=== PATIENT | male | born 1985 | race Caucasian/White ===

== ENCOUNTER 2019-09-24 17:40 | Observation (INO) ==
[2019-09-24] MEDS ORDERED: MORPHINE IV ONE (18:28)
[2019-09-24] MEDS ORDERED: ZOFRAN IV ONE (18:28)
[2019-09-24] MEDS ORDERED: VANCOMYCIN IV PER PHARMACY MISC SCH (18:30)
[2019-09-24 18:37] LABS: BASO# 0.05 X1000 (0.0-0.2); BASO% 0.3 % (0.0-0.8); EOS# 0.16 X1000 (0.0-0.7); EOS% 1.1 % (0.0-10.0); HEMOGLOBIN 14.6 g/dL (14.0-18.0); IMM GRAN# 0.02 X1000 (0.0-0.04); IMM GRAN% 0.1 % (0.0-0.5); LYMPH# 1.85 X1000 (1.2-3.4); LYMPH% 12.8 % (20.5-51.1); MCH 29.1 PG (27-31); MCHC 33.2 g/dL (33-37); MCV 87.6 FL (81-99); MONO# 1.39 X1000 (0.11-0.59); MONO% 9.6 % (1.7-9.3); MPV 10.7 FL (7.4-10.4); NEUT# 10.95 X1000 (1.4-6.5); NEUT% 76.1 % (42.2-75.2); PLT 288 X1000 (130-400); RBC 5.02 XMIL (4.7-6.1); RDW 13.5 % (11.5-14.5); WBC 14.42 X1000 (4.8-10.8)
[2019-09-24 18:52] LABS: AGAP 15; ALKALINE PHOSPHATASE 139 U/L (32-122); BUN 10 mg/dL (8-22); CALCIUM 9.4 mg/dL (8.8-10.2); CHLORIDE 101 mmol/L (98-107); COSMO 277; CREATININE 0.9 mg/dL (0.7-1.2); ESTIMATED GFR > 60; GLUCOSE 108 mg/dL (70-104); GOT 23 U/L (10-34); GPT 38 U/L (10-44); POTASSIUM 3.7 mmol/L (3.5-5.1); SODIUM 139 mmol/L (136-145); TCO2 24 mmol/L (25-35); TOTAL PROTEIN 8.3 g/dL (6.3-8.3)
--- NOTE | 2019-09-24 18:59 | PROVIDER DOCUMENTATION ---
HPI-Rash/Wound/ReCheck - General Chief Complaint: Sores/Lesions Stated Complaint: SORE / ARM Time Seen by Provider: 09/24/19 17:57 Source: patient Allergies/Adverse Reactions: Allergies Allergy/AdvReac Type Severity Reaction Status Date / Time No Known Allergies Allergy Verified 12/30/18 18:22 Home Medications: Home Medication List Medication Instructions Recorded Confirmed Last Taken Type Amoxicillin/Pot Clavulanate 875 mg PO Q12HR #20 tab 12/30/18 Unknown Rx [Augmentin] Levofloxacin [Levaquin] 750 mg PO DAILY #10 tab 12/30/18 Unknown Rx Oxycodone HCl/Acetaminophen 1 ea PO Q4-6H PRN PRN #6 tab 12/30/18 Unknown Rx [Percocet 7.5-325 mg Tablet] - History of Present Illness-Dermatology Nature of Presenting Problem: Patient is a 33 yowm who presents from [facility] for an abscess to right forearm. States he has had the abscess since and had I&D yesterday, also has been taking Bactrim since yesterday. Went to primary care office for recheck yesterday, LIPSTICK MOLDER sent pt here stating abscess is worse. He denies fever or any other complaints and is non-toxic in appearance. Review of Systems - Adult - REVIEW OF SYSTEMS - ADULT Constitutional: reports: no symptoms reported. denies: chills, fever Eyes: reports: no symptoms reported Ears, Nose, Mouth & Throat: reports: no symptoms reported Cardiovascular: reports: no symptoms reported Respiratory: reports: no symptoms reported Gastrointestinal: reports: no symptoms reported Genitourinary: reports: no symptoms reported Musculoskeletal: reports: no symptoms reported Integumentary: reports: see HPI Neurological: reports: no symptoms reported Psychiatric: reports: no symptoms reported Endocrine: reports: no symptoms reported Hematologic/Lymphatic: reports: no symptoms reported Allergic/Immunologic: reports: no symptoms reported All Other Systems: Reviewed and Negative Past History - Adult - PAST MEDICAL HISTORY-ADULT Review of Records: reports: Nursing Assessment Review, Medications Reviewed, Social history reviewed & non-contributory. Major Childhood Illnesses: reports: denies history Cardiovascular: reports: denies history Respiratory: reports: denies history Gastrointestinal: reports: denies history Genitourinary: reports: denies history Musculoskeletal: reports: denies history Neurological: reports: denies history Psychiatric: reports: denies history Endocrine/Immune: reports: denies history Other Conditions: reports: denies history - PRIOR SURGERIES/PROCEDURES Surgical/Procedure History: reports: reviewed, not pertinent - FAMILY HISTORY Family History: reviewed, not pertinent - SOCIAL HISTORY Smoking: non-smoker Physical Exam-General - PHYSICAL EXAM-ADULT Initial Vital Signs Reviewed: Yes - CONSTITUTIONAL General Appearance: alert, no apparent distress. negative: lethargic, slow to respond - EYES Eyes: PERRL/EOMI - HEAD, EARS, NOSE, MOUTH & THROAT HENMT: normocephalic/atraumatic - NECK Neck: full range of motion, supple, normal inspection - RESPIRATORY Respiratory: chest non-tender, lungs clear, normal breath sounds, no pleuratic chest pain, no respiratory distress, no accessory muscle use - CARDIOVASCULAR Cardiovascular: normal peripheral pulses, regular rate, rhythm, no gallop, no murmur - MUSCULOSKELETAL Extremity: normal range of motion, normal capillary refill Peripheral Pulses: radial (R): 3+ - SKIN Integumentary: normal color, warm/dry, other (Large abscess with streaking noted to anterior aspect of right forearm. purulent exudate also noted.). negative: cyanosis, diaphoresis, jaundice, mottled, pallor - NEUROLOGIC Neurologic: grossly normal, no motor/sensory deficits - PSYCHIATRIC Psych/Mental Status: normal mood/affect, normal thought content, normal thought process, oriented x 3 Progress - PLAN OF CARE/RESULTS Progress/Plan/Lab Results: Vital Signs - 8 hr 09/24/19 17:50 Temperature 98 F Pulse Rate 82 Respiratory Rate 18 Blood Pressure 157/94 O2 Sat by Pulse Oximetry 98 Laboratory Results - last 24 hr 09/24/19 09/24/19 09/24/19 18:00 18:00 19:04 WBC 14.42 H RBC 5.02 Hgb 14.6 Hct 44.0 MCV 87.6 MCH 29.1 MCHC 33.2 RDW Std Deviation 13.5 Plt Count 288 MPV 10.7 H Immature Gran % (Auto) 0.1 Neut % (Auto) 76.1 H Lymph % (Auto) 12.8 L [place] % (Auto) 9.6 H Eos % (Auto) 1.1 Baso % (Auto) 0.3 Immature Gran # (Auto) 0.02 Neut # (Auto) 10.95 H Lymph # (Auto) 1.85 [place] # (Auto) 1.39 H Eos # (Auto) 0.16 Baso # (Auto) 0.05 Sodium 139 Potassium 3.7 Chloride 101 Carbon Dioxide 24 L Anion Gap 15 BUN 10 Creatinine 0.9 Estimated GFR/1.73 m2 > 60 BUN/Creatinine Ratio 11 Glucose 108 H POC Glucose 88 Calculated Osmolality 277 Calcium 9.4 Total Bilirubin 0.50 AST 23 ALT 38 Alkaline Phosphatase 139 H Total Protein 8.3 Albumin 5.0 Globulin 3.0 Albumin/Globulin Ratio 2.0 Orders Category Date Time Status Admit - [facility] Routine AdmDCTranf 09/24/19 19:20 Ordered Activity - Up Ad Maggie ORDERED Care 09/24/19 19:22 Ordered Resuscitation Status Routine Care 09/24/19 19:22 Ordered Vital Signs Order ROUTINE Care 09/24/19 19:22 Ordered NPO Diet 09/25/19 00:01 Ordered Regular Diet Diet 09/24/19 19:23 Ordered FOREARM-RIGHT [RAD] Stat Exams 09/24/19 18:28 Completed BLOOD CULTURE [BLDCUL] Stat Lab 09/24/19 18:00 Ordered CBC WITH DIFF [HEME] Stat Lab 09/24/19 18:00 Completed COMPREHENSIVE METABOLIC PANEL [CHEM] Stat Lab 09/24/19 18:00 Completed WOUND CULTURE INC GRAM STAIN [RM] Routine Lab 09/24/19 18:00 Ordered 0.9% Sodium Chloride Inj [Ns] 1,000 ml Med 09/24/19 19:22 Ordered IV 100 mls/hr Acetaminophen [Tylenol] Med 09/24/19 19:22 Ordered 650 mg PO Q6H PRN PRN Ketorolac [Toradol] Med 09/24/19 19:22 Ordered 15 mg IV Q4H PRN PRN Morphine Med 09/24/19 19:22 Ordered 2 mg IV Q3H PRN Morphine Med 09/24/19 18:28 Discontinued 4 mg IV NOW ONE Ondansetron [Zofran] Med 09/24/19 18:28 Discontinued 4 mg IV NOW ONE Ondansetron [Zofran] Med 09/24/19 19:22 Ordered 4 mg IV Q6H PRN Pharmacy Order [Vancomycin IV Per Pharmacy] Med 09/24/19 18:30 Active 1 each MISC DIRECTED Vancomycin 1 gm/Ns Med 09/24/19 20:00 Active 1 gm in 250 ml IV Q1H Vancomycin 1,500 mg Med 09/25/19 08:00 Active 0.9% Sodium Chloride Inj [Ns] 250 ml IV Q12H Transfer/Admit Order [TRANSFER] Routine Transfer 09/24/19 19:17 Ordered Result Diagrams: 09/24/19 18:00 09/24/19 18:00 - REASSESSMENT Reassessment #1 Time Reassessed: 19:00 Status: other (Admitting HPS paged.) Reassessment #2 Time Reassessed: 19:24 Status: other (Pt in agreement with admission plan.) - CONSULTS/PCP/HOSPITALIST Notification #1 *Consult/PCP/Hospitalist*: Dr. Mendoza Time Discussed: 19:18 Reason/Comments: admission- cellulitis Consult Disposition: Admit (Requests basic admit orders including general surgery consult and Vancomycin.) Departure - Departure Date of Disposition Decision: 09/24/19 Time of Disposition Decision: 19:25 DIAGNOSIS: Cellulitis Qualifiers: Site of cellulitis: extremity Site of cellulitis of extremity: upper extremity Laterality: right Qualified Code(s): L03.113 - Cellulitis of right upper limb Disposition: ADMITTED INPATIENT 09 Certified Medical Emergency: Emergent Condition: Stable Referrals and Follow-Ups: None,PCP [Primary Care Provider] - - Critical Care Note This patient required my direct & personal management of CC.: No Attestation - Physician/ ALBINO Attestation Patient care was provided by Advanced Practice Provider:: Yes Advanced Practice Provider:: Diana Sanchez Advanced Practice Provider documentation review:: The Mid-level provider documentation, treatment plan and medical decision making was reviewed by the physician who agrees with all treatment and medical decision making by the MLP. The physician spent face to face time with patient:: No Advanced Practice Provider documentation review:: Supervising physician onsite and consulted in the evaluation and care of this patient. The physician did not have a face to face encounter with the patient.
--- NOTE | 2019-09-24 19:01 | Diag Imaging Result Doc PS360 ---
EXAM: FOREARM-RIGHT 09/24/2019 HISTORY: cellulitis TECHNIQUE: Right forearm two views COMMENT: The there is no evidence of fracture or dislocation. No periosteal reactions are present. There is some soft tissue swelling on the dorsal surface of the forearm near the midshaft of the ulna. IMPRESSION: No evidence of acute bony abnormality. Electronically signed by He Lyn 09/24/2019 6:58 PM
[2019-09-24] MEDS ORDERED: NS 1,000 ML IV ONE (19:22)
[2019-09-24] MEDS ORDERED: MORPHINE IV PRN (19:22)
[2019-09-24] MEDS ORDERED: TYLENOL PO PRN (19:22)
[2019-09-24] MEDS: VANCOMYCIN 1 GM/NS 1 GM/250 ML IVPB IV SCH ×2 (19:39→22:02)
[2019-09-24 21:02] LABS: INR 0.87; PROTIME 12.2 Seconds (11.0-16.0)
--- NOTE | 2019-09-24 21:09 | Diag Imaging Result Doc PS360 ---
EXAM: CHEST-1 VIEW 09/24/2019 HISTORY: sepsis protocol TECHNIQUE: Erect AP portable at 2049 COMMENT: There is no evidence of acute cardiac or pulmonary disease. No previous studies are available for comparison. IMPRESSION: No evidence of acute disease. Electronically signed by He Lyn 09/24/2019 9:06 PM
[2019-09-24] MEDS: DILAUDID IV PRN (22:08)
[2019-09-25] MEDS: DILAUDID IV PRN ×4 (00:41→11:25)
[2019-09-25 05:29] VITALS: BP 135/84
[2019-09-25 05:58] LABS: URINE SOURCE CLEAN CATCH
[2019-09-25 06:09] LABS: BILIRUBIN URINE NEGATIVE (NEGATIVE); BLOOD URINE TRACE (NEGATIVE); COLOR YELLOW; GLUCOSE URINE NEGATIVE (NEGATIVE); KETONE URINE NEGATIVE (NEGATIVE); LEUKOCYTES URINE NEGATIVE (NEGATIVE); NITRITE URINE NEGATIVE (NEGATIVE); PH URINE 6.5; PROTEIN URINE NEGATIVE (NEGATIVE); SP GRAVITY URINE 1.013; TURBIDITY URINE CLEAR (CLEAR); UR EPITHELIAL CELLS <10 /HPF (<10); URINE BACTERIA NEGATIVE /HPF; URINE RBC <10 /HPF (<10); URINE WBC <10 /HPF (<10); UROBILINOGEN URINE NORMAL (NORMAL)
[2019-09-25] MEDS ORDERED: VANCOMYCIN 1,500 MG in NS 250 ML IV SCH (08:00)
[2019-09-25] MEDS: TORADOL IV PRN ×2 (08:27→13:40)
[2019-09-25] MEDS ORDERED: NS 500 ML ONE (09:48)
[2019-09-25] MEDS: ZOFRAN IV PRN ×2 (09:49→13:41)
[2019-09-25] MEDS ORDERED: NS 500 ML IV PRN (09:53)
[2019-09-25] MEDS ORDERED: FLU VACCINE IM ONE (10:00)
[2019-09-25 12:39] LABS: BASO# 0.04 X1000 (0.0-0.2); BASO% 0.5 % (0.0-0.8); EOS# 0.29 X1000 (0.0-0.7); EOS% 3.7 % (0.0-10.0); HEMATOCRIT 37.2 % (42.0-52.0); HEMOGLOBIN 11.8 g/dL (14.0-18.0); IMM GRAN# 0.01 X1000 (0.0-0.04); IMM GRAN% 0.1 % (0.0-0.5); LYMPH# 1.84 X1000 (1.2-3.4); LYMPH% 23.7 % (20.5-51.1); MCH 28.8 PG (27-31); MCHC 31.7 g/dL (33-37); MCV 90.7 FL (81-99); MONO# 0.73 X1000 (0.11-0.59); MONO% 9.4 % (1.7-9.3); MPV 10.2 FL (7.4-10.4); NEUT# 4.87 X1000 (1.4-6.5); NEUT% 62.6 % (42.2-75.2); PLT 238 X1000 (130-400); RDW 13.4 % (11.5-14.5); WBC 7.78 X1000 (4.8-10.8)
--- NOTE | 2019-09-25 17:57 | HISTORY AND PHYSICAL ---
PRIMARY CARE PHYSICIAN: None. CHIEF COMPLAINT: Right forearm abscess, sent from walk-in clinic for evaluation and treatment. HISTORY OF PRESENT ILLNESS: This is a 33-year-old male who presents to [facility] ER after he states last he had an area to his right forearm closest to his elbow that had a little lorenzo on it. He popped it and then picked at it with some tweezers and noticed the next day that it became a little red. It progressively worsened over the weekend and was seen at a walk-in clinic on Monday, where an I D was performed and it was packed with gauze. Went back to the clinic yesterday for a recheck and the CAR PICK UP DRIVER there felt like the area was worse with erythema, warmth to touch, and edema. She did leave the packing in at this time. His workup in the emergency room showed a right forearm x-ray with no evidence of acute bony abnormality. There was some soft tissue swelling on the dorsal surface of the forearm near the midshaft of the ulna. His white blood cell count was 14.42. So he was admitted for further evaluation and treatment. PAST MEDICAL HISTORY: None. PAST SURGICAL HISTORY: None. FAMILY HISTORY: Reviewed and noncontributory. SOCIAL HISTORY: He currently lives with family. Denies any tobacco, alcohol, or illicit drug use. ALLERGIES: He has no known drug allergies. HOME MEDICATIONS: He does not take any medications on a routine basis. LABORATORY DATA: Showed a white blood cell count of 14.42, hemoglobin 14.6, hematocrit 44, platelets 288,000. PT and INR of 12.2 and 0.87. Sodium of 139, potassium 3.7, chloride 101, CO2 24, BUN of 10, creatinine 0.9, glucose 108. Cardiac enzymes were negative. Plasma lactate of 1.3. Urinalysis was negative. A right forearm x-ray showed no evidence of acute bony abnormality. There was some soft tissue swelling on the dorsal surface of the forearm near the midshaft of the ulna. Chest x-ray showed no evidence of acute disease. REVIEW OF SYSTEMS: He denied any fever, chills, blurred vision, dizziness, chest pain, coughing, shortness of breath. He did have pain to his right forearm with erythema, edema, warmth to touch. Denied any abdominal pain, constipation, diarrhea, burning or hurting with urination. PHYSICAL EXAMINATION: VITAL SIGNS: On arrival he had a temperature of 98 degrees, pulse 82, respirations 18, blood pressure 157/94, saturating 98% on room air. GENERAL: This is a 33-year-old male sitting up in the bed and answers questions appropriately. HENT: Normocephalic, atraumatic. Normal ENT inspection. Oropharynx and nares are clear. EYES: Pupils are equal, round, reactive to light and accommodation. Extraocular movements are intact. NECK: Normal inspection. Normal range of motion. LUNGS: Clear to auscultation bilaterally with equal lung expansion and chest wall movement. HEART: Regular rate and rhythm. No murmurs, rubs, or gallops. ABDOMEN: Soft, nontender, nondistended. Bowel sounds are present x4 quadrants. SKIN: On the dorsal surface of the right forearm he has a large area of erythema, edema, some purulent exudate was also noted. He does have packing in place from the I D done at a walk-in clinic on Monday. MUSCULOSKELETAL: He has 5/5 strength x4 extremities. NEUROLOGICAL: The cranial nerves 2-12 appear grossly intact. ASSESSMENT: 1. Right forearm cellulitis with possible abscess. 2. Leukocytosis. PLAN: He was admitted to the medical unit. Held n.p.o. as we have consulted General Surgery for further evaluation and intervention. Wound culture and blood cultures x2 are pending. He has Dilaudid 1 mg IV q.3 hours p.r.n., Toradol 15 mg IV q.4 hours p.r.n., normal saline at 50 mL an hour to run with his vancomycin. He has vancomycin per pharmacy protocol. We will recheck a CBC and BMP in the a.m. Further orders after seen by attending and by networks computer consultant. Dictated by JASMIN Truong for Beka Mendoza MD cc: JASMIN Truong MD
--- NOTE | 2019-09-25 21:56 | GENERAL SURGERY CONSULTATION ---
DATE: 09/25/2019 REQUESTING PHYSICIAN: Dr. Mendoza. SURGEON CONSULTATED: Kevin Cano MD REASON FOR CONSULTATION: Right forearm abscess. HISTORY OF PRESENT ILLNESS: This is a 33-year-old male who noticed a small bump or pimple on his right forearm that he thought might be an ingrown hair 1 week ago. The next day was a little larger. He expressed it with tweezers and did not get really much drainage out. Over the next couple of days, it progressed in size, pain and redness. He presented to a walk-in clinic 2 days ago. It was lanced; however, there was no purulence obtained. On follow-up yesterday, he had worsening redness and streaking of his forearm and he was sent to the hospital. Overnight he has been given vancomycin had some decrease in pain, swelling and redness. PAST MEDICAL HISTORY: None. PAST SURGICAL HISTORY: None pertinent. HOME MEDICATIONS: None. ALLERGIES: No known drug allergies. FAMILY HISTORY: Reviewed and noncontributory. REVIEW OF SYSTEMS: Ten systems reviewed and negative except as noted above. PHYSICAL EXAMINATION: Vital Signs: Temperature 98 degrees, pulse 87, respirations 18, blood pressure 135/84. General: Well-developed male in no distress who looks stated age. CV: Regular rate and rhythm. Respiratory: Bilateral breath sounds. No work of breathing. Extremities: The right forearm has an area of redness, swelling, induration, tenderness and a small amount of purulence. LABORATORY: White cell count 14,000. Electrolytes reviewed and unremarkable. IMAGING: Forearm x-ray is negative. ASSESSMENT AND PLAN: A 33-year-old male with right forearm abscess. We will do a bedside incision and drainage. The patient thinks packing was left in his wound, so we will explore the wound as well. I discussed the risks and benefits with him including bleeding, ongoing infection. He understands and agrees to proceed. cc: Kevin Cano MD
--- NOTE | 2019-09-25 21:59 | OPERATIVE NOTE ---
PROCEDURE DATE: 09/25/2019 PREOPERATIVE DIAGNOSIS: Right forearm abscess. POSTOPERATIVE DIAGNOSIS: Right forearm abscess. PROCEDURE: Incision and drainage of abscess. SURGEON: Kevin Cano MD. ESTIMATED BLOOD LOSS: 3 mL. COMPLICATIONS: None apparent. SPECIMENS: Purulent fluid for culture and sensitivity. FINDINGS: He had a small amount of purulent fluid, necrotic subcutaneous fat and slough. There was no evidence of any retained foreign gauze or foreign body. TECHNIQUE: His forearm was prepped with Betadine. An 11 blade was used to make an incision over the fluctuant area. The wound was explored with a hemostat with the above findings. I then packed the wound with half-inch iodoform gauze. He tolerated this well. There were no apparent complications. cc: Kevin Cano MD
--- NOTE | 2019-09-26 12:17 | DISCHARGE SUMMARY ---
ADMISSION DATE: 09/24/2019 DISCHARGE DATE: 09/25/2019 ADMISSION DIAGNOSIS: Cellulitis of the right arm with residual abscess. DISCHARGE DIAGNOSIS: Cellulitis of the right arm with residual abscess. PROCEDURE: Incision and drainage per Dr. Cano. HOSPITAL COURSE: Briefly, this is a 33-year-old male, who has no major medical problems, who came in for evaluation last night for an arm abscess. He was placed empirically on vancomycin. He had been on Bactrim as an outpatient. When I saw him, the lymphangitic streaking had improved with vancomycin. We are still waiting on culture results. Dr. Cano did a brief I and D on the lesion and wrapped it and recommended follow-up. We will discharge him and have him come back for 1 dose of Orbactiv just to kind to help treat this complicated skin infection, await wound culture results. DISCHARGE MEDICATIONS: 1. Doxycycline 100 b.i.d. for 5 days, just until he can come back in for his Orbactiv and [place] 7.5 q. 6 hours p.r.n. pain. PLAN: He is also to follow up with Dr. Cano in 1 to 2 weeks. This is a [id number] encounter note with Samantha Ferguson. cc: Beka Mendoza MD
--- NOTE | 2019-09-29 11:15 | DISCHARGE SUMMARY ---
ADMISSION DATE: 09/24/2019 DISCHARGE DATE: 09/25/2019 PRIMARY CARE PHYSICIAN: None. ADMISSION DIAGNOSES: 1. Right forearm cellulitis with possible abscess. 2. Leukocytosis. DISCHARGE DIAGNOSES: 1. Right forearm cellulitis with possible abscess. 2. Leukocytosis. SUMMARY OF FINDINGS: This is a 33-year-old male who presented to the ER after he states the prior , in an area to his right forearm closest to his elbow, that had a little lorenzo on it. He popped it and then picked it with some tweezers, and noticed the next day that it had become red and progressively worsened over the week. Had been seen at a walk-in clinic on Monday. They did an I and D, and packed it with gauze. He went back to the clinic the next day for a recheck and they felt that the area was worse with increased erythema, warmth to touch, and edema. We initially thought that the packing had been left in due to what the family and the patient said. We consulted surgery who did another I and D and no packing was found. His culture grew out a Staphylococcus aureus and it was felt that he could safely be discharged home per general surgery to follow up with the surgeon in 1 week and to call the office for an appointment. He was to change his bandage on 09/26/2019 and daily to wash with normal saline and Vashe wound cleanser. He could shower with the wound covered and change the dressing after showering. We set him up for an infusion of Orbactiv. DISCHARGE MEDICATIONS: Included doxycycline 100 mg p.o. b.i.d., #5 with no refills, and [place] 7.5 one p.o. q.6 hours, #20 with no refills. All discharge instructions were reviewed with the patient and he verbalized understanding. This is a 35 minute discharge. Dictated by JASMIN Truong for Beka Mendoza MD cc: JASMIN Truong MD
== END 2019-09-25 13:35 | disposition home or self-care (01) ==
LOC: P.ED 17:40 → INTOOBSV 20:34 → P.MEDSURG 20:34
PROVIDERS: ATTEND Internal Medicine